=== PATIENT | female | born 1950 | race American Indian/Alaskan Native ===

== ENCOUNTER 2017-08-31 13:06 | Inpatient (IN) | payer MEDICARE, OTHER ==
[~2017-08-31] VITALS: Ht 172.7 cm; Wt 128.0 kg
[~2017-08-31 13:06] MED LIST: AVAPRO300 MG PO; FOLIC ACID1 MG PO; IRON325 M1 PO; LEVOTHYROXINE125 MCG PO; METOPROLOL SUCC50 MG PO; PRILOSEC20 MG PO; VITAMIN C250 MG PO; VITAMIN D2000 UNI1 PO
[2017-08-31] MEDS ORDERED: OMEPRAZOLE20 MG PO (13:24)
[2017-08-31] MEDS ORDERED: VITAMIN B-12500 MC3 SL (13:25)
[2017-08-31] MEDS ORDERED: VITAMIN E100 UNIT PO (13:26)
--- NOTE | 2017-08-31 21:00 | NUR ---
PATIENT ARRIVED FROM ER WITH LAZARO COMMANDING OFFICER GARAGE FLOAT NURSE. PATIENT HAVING NO PAIN, BUT INTENDING TO SPEND THE NIGHT IN THE BEDSIDE RECLINER THE BED CAUSES HER BACK PAIN AND SHE NORMALLY SLEEPS IN A RECLINER AT HOME.
--- NOTE | 2017-08-31 21:35 | NUR ---
FRESH WATER GIVEN. PT IS IN HER CHAIR WHEN I LEFT.
--- NOTE | 2017-08-31 22:45 | NUR ---
PATIENT HAS BEEN ADMITTED. 1 UNIT PRBC'S STARTTED AT 2226 WITH STABLE VS AND REPEAT VITALS AT 15 MIN ALSO STABLE AT 2241. LUNGS ARE CLEAR NO REACTION NOTED TO TRANSFUSION THUS FAR. PATIENT REMAINS SITTING UP IN THE RECLINER AND HAS THE CALL LIGHT IN REACH.
--- NOTE | 2017-09-01 01:30 | NUR ---
PATIENT'S TRANSFUSION IS COMPLETE AND VS REMAIN STABLE. PATIENT WANTS TO CONTINUE BEING UP IN THE CHAIR. PATIENT VOIDING IN THE BATHROOM WITHOUT DIFFICULTY AND AMBULATED TO THE BATHROOM WITH 1PSBA TO HELP WITH IV PUMP, WHICH IS NOW DISCONTINUED. BACK PAIN 3/10 WHICH PATIENT SAYS IS NORMAL FOR HER AND NO PAIN MEDICATION IS WANTED AT THIS TIME.
--- NOTE | 2017-09-01 03:39 | NUR ---
PATIENT CONTINUES TO SLEEP IN THE RECLINER. RESPIRATIONS EVEN AND REGULAR AT 16BPM. CALL LIGHT IS IN REACH.
--- NOTE | 2017-09-01 06:07 | NUR ---
VITALS AND I&OS DONE AND CHARTED. CALL LIGHT WITHIN REACH. PT NEEDS NOTHING AT THIS TIME.
--- NOTE | 2017-09-01 06:15 | NUR ---
PATIENT CONTINUES TO BE UP IN THE CHAIR. SHE IS CURRENTLY AWAKE AND HAVING NO PAIN. PATIENT HAD 3 UNITS OF PACKED RBC'S LAST NIGHT AND THERE HAS ALICIA NO SIGN OF ANY TRANSFUSION REACTION. IS HERE AND INFORMED US PATIENT COULD CONTINUE ON CLEAR LIQUIDS UNTIL ARRIVES TO DECIDE THE TREATMENT FOR THE DAY. PATIENT'S VITALS HAVE BEEN STABLE. LUNGS HAVE BEEN CLEAR. BOWEL TONES HAVE BEEN ACTIVE. PATIENT VOIDING SUFFICIENT AMOUNTS OF URINE IN THE RESTROOM AND HAD ONE SMALL DARK STOOL PER PATIENT THAT WAS FLUSHED. PATIENT'S CALL LIGHT IS IN REACH AND HER WATER GLASS FULL.
--- NOTE | 2017-09-01 07:15 | NUR ---
REPORT RC'D FROM MS ACCESS DATABASE DEVELOPER NURSE. PT SITTING IN CHAIR AND PARTICIPATING IN BEDSIDE REPORT. PT VERBALIZED WANTING TO DC HOME FOR BOWEL PREP IF SURGERY IS NOT PERFORMED TODAY. ADVISED PT PROVIDER WOULD BE IN TO ASSESS PT AND UPDATE PLAN OF CARE. DENIES ANY OTHER NEEDS AT THIS TIME.
--- NOTE | 2017-09-01 07:33 | NUR ---
PATIENT SITTING UP IN BEDSIDE RECLINER, CALL LIGHT IN REACH. PATIENT STATES SHE HAS ALREADY BEEN UP TO WASH HANDS AND FACE AND DO AM CARE. CALL LIGHT IN REACH. NO OTHER NEEDS AT THIS TIME.
--- NOTE | 2017-09-01 09:20 | NUR ---
PT SITTING IN CHAIR COMFORTABLY AT THIS TIME. PT A&O X3 AND RESPONDING APPROPRIATELY. RESPIRATION EVEN AND UNLABORED, LUNGS SOUNDS CLEAR THROUGHOUT ALL KUO. MILD ABD DISTENSION NOTED. DENIES PAIN, NAUSEA, OR ACUTE CHANGES. LAST BM THIS MORNING, PT STATES COLOR IMPROVED FROM TARRY TO DEEP GREEN IN COLOR. PT AMBULATING INDEPENDENTLY IN ROOM, FALL PREVENTION AND SAFETY DISCUSSED. PT REFUSED BISACODYL STATING SHE WOULD PREFER BOWEL PREP AT HOME, STOOL IS ALREADY SOFT, PT HAS HAD MULTIPLE BMS, AND STATES SHE WOULD LIKE TO AVOID EXCESSIVE BM AT THIS TIME, EDUCATION PROVIDED, REFUSAL NOTED. DENIES OTHER NEEDS AT THIS TIME. CALL LIGHT WITHIN REACH.
[2017-09-01] MEDS ORDERED: TOPROL XL100 MG PO (09:34)
--- NOTE | 2017-09-01 09:37 | NUR ---
PATIENT SITTING UP IN BEDSIDE RECLINER, RECYCLING TECHNICIAN IN ROOM. CALL LIGHT IN REACH. NO OTHER NEEDS AT THIS TIME.
--- NOTE | 2017-09-01 09:38 | NUR ---
MED REC COMPLETE
--- NOTE | 2017-09-01 10:00 | NUR ---
SPOKE WITH PATIENT IN ROOM. SHE WAS UP IN CHAIR. PATIENT AAOX3. PATIENT LIVES ALONE BUT HAS DAUGHTER CLOSE BY TO HELP. PATIENT IS RETIRED BUT STILL DRIVES. SHE IS ACTIVELY SEEING HER PCP, LAST SEEN YESTERDAY. WE DISCUSSED THAT HER PCP OFFICE HAS [facility] RN'S AVAILABLE TO COME INTO HER HOME FOR EDUCATION OR MEDICAL HELP. SHE STATES SHE DID NOT KNOW THIS AND WILL CONSIDER ASKING ABOUT THIS PROGRAM. SHE STATES SHE HAS NO ISSUES AMBULATING BUT DOES HAVE A CANE AT HOME TO USE IF NEEDED. NO KNOWN BARRIERS TO DISCHARGE HOME AT THIS TIME AND THIS IS THE PATIENTS PREFERENCE.
--- NOTE | 2017-09-01 10:10 | NUR ---
PT RESTING IN CHAIR AND READING. NO ACUTE DISTRESS NOTED. NO ACUTE CHANGES. DENIES ANY OTHER NEEDS AT THIS TIME. CALL LIGHT WITHIN REACH.
--- NOTE | 2017-09-01 12:00 | NUR ---
PT RESTING ON COUCH WITH EYES CLOSED. RESPIRATIONS EVEN AND UNLABORED. NO ACUTE DISTRESS NOTED.
--- NOTE | 2017-09-01 12:19 | NUR ---
PT SITTING IN CHAIR, ALERT AND ORIENTED. PT ANSWERS QUESTIONS-SHORT AND TO THE POINT. EXTENDED A BLESSING, AND WILL BE AVAILABLE NEEDED
--- NOTE | 2017-09-01 13:40 | NUR ---
PT SLEEPING ON COUCH. PT AWOKEN FOR MIRALAX BOWEL PREP. EDUCATED ON MIRALAX AND WHAT TO EXPECT. PT VERBALIZED UNDERSTANDING. PT VOIDING QS, HAT EMPTIED. PT DENIES OTHER NEEDS AT THIS TIME.
--- NOTE | 2017-09-01 14:05 | NUR ---
PATIENT SITTING UP IN BEDSIDE RECLINER, CALL LIGHT IN REACH. NO OTHER NEEDS AT THIS TIME.
--- NOTE | 2017-09-01 15:33 | NUR ---
PATIENT RESTING IN BEDSIDE RECLINER. CALL LIGHT IN REACH. NO OTHER NEEDS AT THIS TIME.
--- NOTE | 2017-09-01 16:00 | NUR ---
PT RESTING IN CHAIR IN RESTROOM READING BOOK. NO ACUTE CHANGES. BOWEL PREP COMPLETED. BARRIER WIPES PROVIDED AND EDUCATION ON MONITOR FOR SKIN BREAKDOWN PROVIDED, PT VERBALIZED UNDERSTANDING. PT NEXT TO CALL LIGHT IN RESTROOM. PT DECLINES LEAVING RESTROOM AT THIS TIME.
--- NOTE | 2017-09-01 18:23 | NUR ---
PT HAS REMAINED ON CLEAR LIQUID DIET THROUGHOUT THE DAY, NPO AFTER MIDNIGHT. PT TO HAVE UPPER AND LOWER ENDOSCOPY TOMORROW AM. BOWEL PREP COMPLETED, PT TOLERATED WELL, BARRIER WIPES PROVIDED FOR COMFORT. LUNGS CLEAR THROUGHOUT ALL KUO. DENIES PAIN, N/V/D. MILD ABD DISTENTION, ACTIVE BOWEL TONES, DENIES TENDERNESS. SALINE LOCKED. PT INDEPENDENT IN ROOM AND CALLING APPROPRIATELY. PT REPORTS DIFFICULTY SLEEPING AND MUST SLEEP IN CHAIR.
--- NOTE | 2017-09-01 18:27 | NUR ---
PATIENT RESTING IN BEDSIDE RECLINER, CALL LIGHT IN REACH. ORAL CARE PERFORMED. NO OTHER NEEDS AT THIS TIME.
--- NOTE | 2017-09-01 21:07 | NUR ---
pt up in chair, no c/o apin or n/v. tolerating fluids w/o problems, on clears, bowel prep effective. fluids and call light within hands reach
--- NOTE | 2017-09-01 22:00 | NUR ---
PATIENT ASSESSMENT DONE. BOWEL TONES ACTIVE AND LUNGS CLEAR. IV FLUSHES WELL. PATIENT HAVING NO PAIN. WAS ABLE TO FIND PATIENT A BETTERR RECLINEER TO SLEEP IN AND SHE SEEMS MUCH MORE COMFORTABLE. PATIENT ON CLEAR LIQUIDS AND HAS NO NEEDS AT THIS TIME. CALL LIGHT IS IN REACH.
--- NOTE | 2017-09-02 | NUR ---
PATIENT NOW NPO UNTIL AFTER HER PROCEDURE IN THE MORNING. PATIENT HAS BEEN SLEEPING IN THE RECLINER AND IS MUCH MORE COMFORTABLE IN THE NEW CHAIR. WATER GLASSES EMPTIED AND DISCUSSED NPO STATUS WITH PATIENT AND SHE VERBALIZED UNDERSTANDING. PATIENT HAVING NO PAIN AND HAS NO NEEDS AT THIS TIME. PATIENT'S CALL LIGHT IS IN REACH.
--- NOTE | 2017-09-02 02:00 | NUR ---
PATIENT RESTING IN HER RECLINER, EYES CLOSED, RESPIRATIONS EVEN AND REGULAR, AND CALL LIGHT IS IN REACH.
--- NOTE | 2017-09-02 04:00 | NUR ---
PATIENT HAS BEEN RESTING IN THE RECLINER ALL NIGHT SO FAR. LUNGS CLEAR BOWEL TONES ACTIVE. PATIENT IS INDEPENDENT INTO THE BATHROOM. PATIENT STILL NOT HAVING ANY PAIN. CALL LIGHT IS IN REACH.
--- NOTE | 2017-09-02 06:20 | NUR ---
PATIENT IS GOING TO GET UP AND TAKE A SHOWER. PATIENT IS READY TO GO FOR HER EGD AND COLONOSCOPY. PATIENT REMAINS PAIN FREE AND INDEPENDENT. PATIENT HAD 3 UNMEASURED VOIDS AND 1 UNSEEN BM DURING THE SHIFT. CALL LIGHT IN REACH.
--- NOTE | 2017-09-02 06:50 | NUR ---
pt up to shower on her requests. no c/o abd pain, no n/v. Continues NPO
--- NOTE | 2017-09-02 07:15 | NUR ---
REPORT RC'D FROM DRYWALL STRIPPER HELPER NURSE. NO ACUTE CHANGES THORUGHOUT NIGHT. PT NPO AT MIDNIGHT. PT RESTING IN CHAIR. NO ACUTE DISTRESS NOTED.
--- NOTE | 2017-09-02 08:28 | CONS ---
[facility] [address], [place] [address] Signed DATE OF CONSULTATION: 09/01/2017 CHIEF COMPLAINT: Anemia. HISTORY OF PRESENT ILLNESS: Melia is a 67-year-old female with one month of fatigue and dark stool. She claims dyspnea on exertion for only 12 steps. She is known to have a history of iron deficiency anemia, as well as low vitamin B12 levels. In addition, she is obese. When she went to her clinic they asked her to go to the emergency room apparently, for a blood transfusion. On exam by the ER nurse, she was said to be guaiac positive. Consequently, the Medical Service was asked to admit her. I have been asked to see her for upper and lower endoscopy. In reviewing her record, she has been through this twice before back in 2011, and 2016 with both upper and lower endoscopies, and everything has been fine except for a large hiatal hernia. In the meantime, she has been here in the hospital on her liquid diet and her laxatives today. I have been continuous improvement coach operating all day, and I have just made my way down to see her this evening. She seems to be doing quite well and told me that the stool is now clear. PAST MEDICAL HISTORY: Large hiatal hernia, Helicobacter pylori, hypertension, hypothyroidism, vitamin B12 deficiency, iron deficiency anemia, and obesity. PAST SURGICAL HISTORY: EGD and colonoscopy in 2011, and 2016, TAHBSO and AMP repair. SOCIAL HISTORY: She does not smoke, but she has an occasional drink. Chula Narayan is her primary care provider with the [place] clinic. Dr. Jacky Hickman is her hosiery repairer and she is retired from retail. FAMILY HISTORY: There is alcoholism and diabetes in the family. REVIEW OF SYSTEMS: She had 10 systems reviewed. No new findings. ALLERGIES: None. MEDICATIONS: 1. Levothyroxine. 2. Avapro. Electronically Signed By: AMY CABRERA MD 09/02/17 0828 PATIENT NAME: MELIA MACHADO CONSULTATION DATE OF : 46 REPORT #: [id number] PHYSICIAN: AMY CABRERA MD PCP: CHULA NARAYAN REPORT IS CONFIDENTIAL AND NOT TO BE RELEASED WITHOUT AUTHORIZATION [facility] [address] [place] [id number] Signed 3. Vitamin D. 4. Prilosec. 5. Vitamin B12. 6. Vitamin E. Apparently, metoprolol was discontinued. PHYSICAL EXAMINATION: VITAL SIGNS: Her blood pressure is 152/84, heart rate 73, respiratory rate 14, temperature is 97.3. She is 100% on room air. She is 5 feet 8 inches tall at 127 kg. GENERAL: On exam Melia was sitting in her chair at the bedside. She is not ill or toxic. She does not look particularly pale, although she did receive 1 unit of packed red blood cells. LUNGS: Clear to auscultation bilaterally. HEART: Regular rate and rhythm. ABDOMEN: Obese, but soft and nontender. RECTAL: Exam was not repeated. LABORATORY DATA: Hemoglobin 9, it was 7.4 and she received 1 unit packed red blood cells, mean cell volume 75, neutrophils 65. BUN 14, creatinine 0.7. Liver function tests negative. INR 0.9, PTT 27, albumin 3.7. RADIOGRAPHIC STUDIES: CT scan abdomen and pelvis is ordered and she has a large hiatal hernia and gallstones. ASSESSMENT AND PLAN: Melia is a 67-year-old female, who appears to have ongoing chronic iron deficiency anemia. She has been through a bowel prep today. We will plan on doing the upper and lower endoscopy tomorrow morning. I have reviewed that with her in detail. Of course, she has been through it twice already, and so she is very familiar with that. She has expressed understanding, and would like to proceed. Amy Cabrera MD ALB/MODL /[id number] cc: Amy Cabrera MD Electronically Signed By: AMY CABRERA MD 09/02/17 0828 PATIENT NAME: MELIA MACHADO CONSULTATION DATE OF : 46 REPORT #: [id number] PHYSICIAN: AMY CABRERA MD PCP: CHULA NARAYAN REPORT IS CONFIDENTIAL AND NOT TO BE RELEASED WITHOUT AUTHORIZATION [facility] [address] [facility] [place], [place] [address] Signed EFRA Bonilla Copies: AMY CABRERA MD, KRISTIN H PA ~ Electronically Signed By: AMY CABRERA MD 09/02/17 0828 PATIENT NAME: MELIA MACHADO CONSULTATION DATE OF : 46 REPORT #: [id number] PHYSICIAN: AMY CABRERA MD PCP: CHULA NARAYAN REPORT IS CONFIDENTIAL AND NOT TO BE RELEASED WITHOUT AUTHORIZATION
--- NOTE | 2017-09-02 08:45 | NUR ---
PT RESTING COMFORTABLY IN CHAIR. PT REPORTS SLEEPING WELL THORUGHOUT THE NIGHT. REPORTS SMALL LIQUID BM X2. URINE OUTPUT QS. INDEPENDENT IN ROOM. RESPIRATIONS EVEN AND UNLABORED, LUNG SOUNDS CLEAR THROUGHOUT, ON ROOM AIR. NO EDEMA NOTE. CMS INTACT. SALINE LOCKED. PREOP PAPERWORK COMPLETED. DENIES PAIN OR NAUSEA. DENIES OTHER NEEDS AT THIS TIME. CALL LIGHT WITHIN REACH.
--- NOTE | 2017-09-02 09:20 | NUR ---
PT IS SITTING UP IN CHAIR WITH CALL LIGHT IN REACH. PT DID NOT NEED ANYTHING AT THE MOMENT
--- NOTE | 2017-09-02 10:31 | NUR ---
PT OFF FLOOR AT THIS TIME AND DOWN TO OR WITH DAY SURGERY NURSE.
--- NOTE | 2017-09-02 11:05 | NUR ---
09/02/17 1105 Britt Gonzalez 1055 PT ARRIVED TO PACU DROWSY, ON 4L VIA NC. RESP EVEN AND UNLABORED. PT DENIES PAIN AND NAUSEA. PT REORINETED TO PACU.
--- NOTE | 2017-09-02 11:30 | NUR ---
PT ARRIVED VIA STRETCHER FROM DAY SURGERY. PT A&O AND RESPONDING APPROPRIATELY. RESPIRATIONS EVEN AND UNLABORED, OXYGEN SATURATION 98% ON ROOM AIR. PT ABLE TO TRANSFER INDEPENDTLY FROM STRETCHER TO CHAIR, GAIT STEADY, DENIES LIGHTHEADEDNESS. PT TO ADVANCE DIET TOLERATED. DUE TO VOID.
[2017-09-02] MEDS ORDERED: OMEPRAZOLE20 MG PO (11:42)
[2017-09-02] MEDS ORDERED: FERROUS SULFAT325 MG PO (11:43)
--- NOTE | 2017-09-02 12:00 | NUR ---
PT ABLE TO VOID 50CC YELLOW URINE, ENCOURAGED TO VOID NEEDED. PT ABLE TO DRINK WATER AND EAT APPLESAUCE, TOLERATED WELL, DENIES NAUSEA. PT TO ADVANCE DIET TOELRATED.CALL LIGHT WITHIN REACH.
--- NOTE | 2017-09-03 08:26 | OR ---
[facility] [address], [place] [address] Signed DATE OF OPERATION: 09/02/2017 SURGEON: Amy Cabrera MD UPPER AND LOWER ENDOSCOPY REPORT PREOPERATIVE DIAGNOSIS: Recurrent anemia. POSTOPERATIVE DIAGNOSES: 1. Mild linear gastritis associated with large hiatal hernia. 2. Hiatal hernia (40-33 cm). 3. [id number] pandiverticulosis. 4. Moderate internal and external hemorrhoids. PROCEDURES: 1. EGD with CLOtest and biopsies of the antrum. 2. Colonoscopy without biopsy. ESTIMATED BLOOD LOSS: None. INDICATIONS: Yohannes is a 67-year-old female, who had been to her primary care provider. I think mainly because she was dizzy. They found out she was anemic on her blood draw. She had been using Pepto-Bismol and it made her stool dark as well. She was complaining of dyspnea on exertion at 12 steps. She has had anemia in the past and has been through upper and lower endoscopy twice previously because of anemia while in the hospital. Her primary care provider asked to go straight to the emergency room and she was anemic with a hemoglobin of 7.4 and a mean cell volume below 75. BUN was fine at 14, creatinine was good at 0.7. Liver function tests were fine. Albumin was good at 3.7. INR good at 0.9 and PTT was good at 27. There was some concern about guaiac-positive stool on exam by the ER nurse. Consequently, she received a CT scan of the abdomen and pelvis and it showed her large hiatal hernia and some gallstones, but no other major issues. The hospitalist service was asked to admit her with respect to the above. In the meantime, she received 3 units of packed red blood cells and otherwise doing quite well. I was asked to see her as a general surgeon on-call to consider her third upper and lower endoscopy while here in the hospital. She went through a bowel prep yesterday and did quite well. I met with her this morning and we reviewed upper and lower endoscopy in detail. She understands there is risk including, but not limited to gas bloating, Electronically Signed By: AMY CABRERA MD 09/03/17 0826 PATIENT NAME: YOHANNES MACHADO OPERATIVE REPORT DATE OF : 46 REPORT #: [id number] PHYSICIAN: AMY CABRERA MD PCP: MICHAELA KENNEDY REPORT IS CONFIDENTIAL AND NOT TO BE RELEASED WITHOUT AUTHORIZATION [facility] [address], [place] [address] Signed crampy abdominal pain, bleeding, perforation, requiring surgery, and missed diagnosis. She also told me she was awake during her previous colonoscopies and it was a miserable experience. Consequently, we asked an anesthesia provider to come and help us with propofol infusion, but in addition, Yohannes is obese with a very large full neck and face and we needed some help with some airway management as well. Yohannes had expressed understanding and wished to proceed. DESCRIPTION OF PROCEDURE: Yohannes was taken into our endoscopy suite and placed in the supine semi-recumbent position. The posterior oropharynx was anesthetized with Hurricaine spray. A bite block was utilized for the case. She was given IV propofol per our nurse analyst sales. The adult gastroscope was introduced and advanced all the way out into the third portion of the duodenum under direct visualization of camera without difficulty. The duodenum and pyloric channel were unremarkable. The stomach showed very mild erythematous changes. We went and took a biopsy of the antrum for pathologic review as well as CLOtest. Upon retroflexion of the scope, I could see her large hiatal hernia. You could see two areas of superficial linear erosion where the hiatal hernia was traveling across the diaphragm. No active bleeding at this time. No obvious ulcerations. No obvious [place]-Francis tears. No gastric or esophageal varices. No gastric polyps. The scope was withdrawn up through the area of the GE junction. We measured out the hiatal hernia from 40 cm up to 33 cm. GE junction showed minimal disruption. There was no Díaz's mucosa, no distal esophagitis. The middle and upper esophagus were fine. After this, the gas was suctioned out and the gastroscope removed. Yohannes tolerated the procedure quite well. Yohannes was then rotated into the left lateral decubitus position. She was maintained on IV sedation with IV propofol. A digital rectal exam was performed and she does have moderate external hemorrhoids. The adult colonoscope was then introduced and advanced all around into the cecum under direct visualization of camera without difficulty. Her prep was good. The scope was then slowly withdrawn. She had [id number] pandiverticulosis. The rectum itself was unremarkable. Upon retroflexion of the scope, she does have moderate internal hemorrhoids. After this, the gas was suctioned out and the colonoscope removed. Yohannes tolerated her lower endoscopy quite well. RECOMMENDATIONS: I will see Yohannes back in my office in 7 to 14 days after discharge for followup. She has already seen a economic manager, Dr. Jacky Hickman in the past. She may be losing blood slowly associated with that hiatal hernia. She might consider having that repaired. Electronically Signed By: AMY CABRERA MD 09/03/17 0826 PATIENT NAME: YOHANNES MACHADO OPERATIVE REPORT DATE OF : 46 REPORT #: [id number] PHYSICIAN: AMY CABRERA MD PCP: MICHAELA KENNEDY REPORT IS CONFIDENTIAL AND NOT TO BE RELEASED WITHOUT AUTHORIZATION [address] [place], [place] [address] Signed MD FREDDIE Mckenzie/MODL /[id number] cc: MD Jacky Mckenzie, EFRA Case Copies: AMY CABRERA MD, JAMES MD BOURRET, KRISTIN H PA ~ Electronically Signed By: AMY CABRERA MD 09/03/17 0826 PATIENT NAME: YOHANNES MACHADO OPERATIVE REPORT DATE OF : 46 REPORT #: [id number] PHYSICIAN: AMY CABRERA MD PCP: MICHAELA KENNEDY REPORT IS CONFIDENTIAL AND NOT TO BE RELEASED WITHOUT AUTHORIZATION
== END 2017-09-02 14:10 | disposition home or self-care (01) | DRG 378 ==
LOC: ED 13:06 → MS 20:18
PROVIDERS: Colon & Rectal Surgery; ADMIT Internal Medicine
PROC: 0DD78ZX Extraction of Stomach, Pylorus, Via Natural or Artificial Opening Endoscopic, Diagnostic (ICD-10-PCS; principal; 2017-09-02 10:24)
PROC: 0DJD8ZZ Inspection of Lower Intestinal Tract, Via Natural or Artificial Opening Endoscopic (ICD-10-PCS; 2017-09-02 10:24)
DX: K29.71 Gastritis, unspecified, with bleeding (principal); Z68.41 Body mass index [BMI] 40.0-44.9, adult; D50.0 Iron deficiency anemia secondary to blood loss (chronic); K44.9 Diaphragmatic hernia without obstruction or gangrene; D51.9 Vitamin B12 deficiency anemia, unspecified; I10 Essential (primary) hypertension; E03.9 Hypothyroidism, unspecified; E66.9 Obesity, unspecified; K57.30 Diverticulosis of large intestine without perforation or abscess without bleeding; K64.8 Other hemorrhoids; K64.4 Residual hemorrhoidal skin tags; Z79.899 Other long term (current) drug therapy
CPT/HCPCS: 36415; 36430; 74177; 80048; 80053; 85025; 85610; 85730; 86677; 86850; 86900; 86901; 86920; 96374; 99285; J2250; J2704; J3010; Q9967

== ENCOUNTER 2018-02-18 17:12 | Emergency (ER) | payer MEDICARE, OTHER ==
[~2018-02-18] VITALS: Ht 172.7 cm; Wt 113.4 kg
[~2018-02-18 17:12] MED LIST changes: +FERROUS SULFAT325 MG PO; +OMEPRAZOLE20 MG PO; +TOPROL XL100 MG PO; +VITAMIN B-12500 MC3 SL; +VITAMIN E100 UNIT PO
[2018-02-18] MEDS ORDERED: POTASSIUM CHLO20 ME1 PO (21:56)
[2018-02-18] MEDS ORDERED: KEFLEX500 MG PO (21:56)
== END 2018-02-18 22:33 | disposition home or self-care (01) ==
LOC: ED 17:12
PROC: 0T9B70Z Drainage of Bladder with Drainage Device, Via Natural or Artificial Opening (ICD-10-PCS; principal; 2018-02-18)
DX: G89.18 Other acute postprocedural pain (principal); R10.13 Epigastric pain; E87.6 Hypokalemia; N39.0 Urinary tract infection, site not specified; I10 Essential (primary) hypertension; Z87.891 Personal history of nicotine dependence; Z98.890 Other specified postprocedural states; Z79.899 Other long term (current) drug therapy
CPT/HCPCS: 51701; 74177; 80053; 81001; 83690; 85025; 96361; 96374; 96375; 99284-25; J1170; J2405; J7030; J7040; Q9967

== ENCOUNTER 2020-11-03 17:15 | Observation (INO) | payer MEDICARE, OTHER ==
[~2020-11-03] VITALS: Ht 172.7 cm; Wt 130.6 kg
[~2020-11-03 17:15] MED LIST changes: +KEFLEX500 MG PO; +POTASSIUM CHLO20 ME1 PO
--- NOTE | 2020-11-04 07:21 | CONS ---
[facility] [address], [place] [address] Signed DATE OF CONSULTATION: 11/04/2020 CHIEF COMPLAINT: Right lower quadrant abdominal pain. HISTORY OF PRESENT ILLNESS: Melia is a 70-year-old obese female, who has 1-day history of right lower quadrant abdominal pain. This started in the morning. She came to the emergency room late in the day. In the emergency room, she was tender in the right lower quadrant. She seems to be a little tachycardic, but she has not taken her metoprolol. Her temperature was about 99 or little higher. She had a white count slightly borderline at 10.5. The other tests were unremarkable including her COVID test. She underwent a chest x-ray which was unremarkable. The CT scan of the abdomen and pelvis showed the 9 mm mildly dilated appendix with some periappendiceal inflammation and possibly a small appendicolith at the base of the appendix. Consequently, I was asked to admit her as a general surgeon on-call. She has declined Tylenol, ibuprofen and pain medication up to this point. She did receive some Rocephin and Flagyl last night. She has done well overnight. PAST MEDICAL HISTORY: Chronic diarrhea, hypertension, history of anemia, hypothyroidism, and osteoarthritis of her knees with the right worse than the left. PAST SURGICAL HISTORY: Includes a vaginal partial hysterectomy with bladder sling and repair as well as laparoscopic Sveta fundoplication with Dr. Katelin Armando. SOCIAL HISTORY: She smoked on and off when she was young, but by her 38 she quit. She does not drink. She does not use marijuana products. She is now , but has four children, Jazmin Pugh is her daughter at [phone]. Melia is retired, but still drives and uses a cane to help ambulate. She attends the [facility] with Dr. Kin Echevarria. FAMILY HISTORY: She has half siblings who have diabetes. Her mom had some type of heart problem. REVIEW OF SYSTEMS: She had 10 systems reviewed and we included pertinent positives in the above. She said there is no metal in her body. ALLERGIES: None. Electronically Signed By: AMY CABRERA MD 11/04/20 0721 PATIENT NAME: MELIA MACHADO CONSULTATION DATE OF : 46 REPORT #: [id number] PHYSICIAN: AMY CABRERA MD PCP: [facility] REPORT IS CONFIDENTIAL AND NOT TO BE RELEASED WITHOUT AUTHORIZATION [facility] [address], [place] [address] Signed MEDICATIONS: Levothyroxine 125 mcg p.o. daily, irbesartan 300 mg p.o. daily, vitamin D, vitamin B12, and metoprolol-XL 100 mg p.o. daily. PHYSICAL EXAMINATION: VITAL SIGNS: Her blood pressure is 142/59, heart rate 116, respiratory rate 20, her temperature is 100.8. She is 92-98% on room air. She is 5 feet 8 inches at 130 kg. GENERAL: Melia is a 70-year-old female lying supine in her hospital bed. She does not appear systemically ill or toxic. She is generally cooperative and fairly good historian. LUNGS: Generally clear to auscultation bilaterally. HEART: Little tachycardic, but no murmur. ABDOMEN: Obese, but soft. She is tender in the right lower quadrant. LABORATORY DATA: White blood count is 10.5, hemoglobin 13, neutrophils 78. BUN 17, creatinine 0.73. COVID is negative. Urinalysis negative. Liver function tests are negative. Albumin is 3.6. Lipase is negative. EKG showed normal sinus rhythm. RADIOGRAPHIC STUDIES: A chest x-ray was unremarkable. The CT scan of the abdomen and pelvis shows the 9 mm mildly dilated appendix with periappendiceal inflammation and possibly a small appendicolith at the base of the appendix. ASSESSMENT AND PLAN: Melia is a 70-year-old obese female, who appears to have classic appendicitis. She has been admitted, started on IV fluids and antibiotics. She has declined pain medication up to this point. I brought up a brochure with me on the appendix. We discussed the location and function of the appendix. We have discussed laparoscopic versus open appendectomy. We have discussed the expected intraop and postop course. There is risk to surgery including, but not limited to bleeding, infection, scarring, change in contour of the skin, damage to bowel, appendiceal stump leak, postoperative intraabdominal abscess, incisional hernias and other unforeseen comorbidities. In the meantime, we are going to resume her metoprolol IV and I have encouraged her to try at least some Tylenol or ibuprofen if not some Dilaudid to help with her pain control. We are going to work her in our schedule today as well. She has expressed understanding and would like to proceed as above. Amy Cabrera MD Electronically Signed By: AMY CABRERA MD 11/04/20 0721 PATIENT NAME: MELIA MACHADO CONSULTATION DATE OF : 46 REPORT #: [id number] PHYSICIAN: AMY CABRERA MD PCP: [facility] REPORT IS CONFIDENTIAL AND NOT TO BE RELEASED WITHOUT AUTHORIZATION [address] [place]ik [place] [address] Signed ALB/MODL /[id number] cc: MD Katelin Sosa MD Andrew L Bower, MD Copies: KIN ECHEVARRIA MD, CHRISTY MD BOWER, ANDREW L MD ~ Electronically Signed By: AMY CABRERA MD 11/04/20 0721 PATIENT NAME: MELIA MACHADO CONSULTATION DATE OF : 46 REPORT #: [id number] PHYSICIAN: AMY CABRERA MD PCP: [facility] REPORT IS CONFIDENTIAL AND NOT TO BE RELEASED WITHOUT AUTHORIZATION
--- NOTE | 2020-11-04 13:14 | OR ---
[facility] [address], [place] [address] Signed DATE OF OPERATION: 11/04/2020 SURGEON: mAy Cabrera MD PREOPERATIVE DIAGNOSIS: Acute appendicitis. POSTOPERATIVE DIAGNOSIS: Acute necrotic appendicitis. PROCEDURE: Laparoscopic appendectomy. ESTIMATED BLOOD LOSS: None. FINDINGS: The base of the appendix was necrotic. INDICATIONS: Melia is a 70-year-old obese female, who presented with 1-day history of right lower quadrant abdominal pain. She came to the emergency room the evening. She was tender in the right lower quadrant with a slightly elevated white blood cell count. A chest x-ray was unremarkable. The CT scan showed a mildly dilated appendix at 9 mm. There was periappendiceal inflammation. Question whether or not there was an appendicolith at the base of the appendix. 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 She received Rocephin and Flagyl and IV fluids. She declined pain medications. This morning, I met with Melia in the hospital room. I gave her a brochure on the appendix. We discussed the location and function of the appendix. We discussed laparoscopic versus open appendectomy. She understands expected intraop and postop course. There is risk of surgery including, but not limited to bleeding, infection, scarring, change in contour of the skin, damage to bowel, appendiceal stump leak, postoperative intraabdominal abscess, incisional hernias and other unforeseen comorbidities. She had expressed understanding and wished to proceed. PROCEDURE NOTE: Melia was taken into the operating room and placed in the supine position under general endotracheal tube anesthesia. She already had subcutaneous Lovenox along with SCDs in place. A Jerry catheter was inserted with return of clear yellow urine without difficulty. She was then prepped and draped in the usual sterile fashion. All trocars Electronically Signed By: AMY CABRERA MD 11/04/20 1314 PATIENT NAME: MELIA MACHADO OPERATIVE REPORT DATE OF : 46 REPORT #: [id number] PHYSICIAN: AMY CABRERA MD PCP: [facility] REPORT IS CONFIDENTIAL AND NOT TO BE RELEASED WITHOUT AUTHORIZATION [facility] [address], [place] [address] Signed were placed in usual positions under direct visualization of camera without difficulty. We took pictures throughout for photodocumentation. It took just a minute to bluntly dissect the omentum away from the appendix in the base of the cecum. The base of the cecum was a bit inflamed. The proximal 1/4th of the appendix was a bit necrotic. We cleared off the base of the appendix with help of cautery. We used our GI load on linear stapler and we placed that as high up onto the cecum as we could to divide it from the appendix. Those oh seemed to be quite secure. There was good hemostasis. We then used a vascular load to come across the mesoappendix with excellent hemostasis as well. The appendix was then placed into an EndoCatch bag and taken out through the right subcostal trocar site. We used our laparoscopic suturing device to pass 0-Vicryl suture on either side of the fascia right subcostal trocar site. This was tied down to close the fascia primarily. After this, all the gas was allowed to escape and all the remaining trocars removed along with the appendix. The appendix was passed off the field to our circulating nurse. After this, the supraumbilical trocar site was closed with interrupted [id number]-sd-sbjxy and simple 0-Vicryl sutures. Local anesthetic was injected into all trocar sites. The skin and dermis of each trocar site were closed with interrupted 3-0 subcuticular Monocryl sutures. Dry gauze and tape were applied to all incisions. The Jerry catheter was then removed without difficulty. Melia was awakened from her anesthesia, extubated in the OR, and taken to the recovery room in stable condition. Amy Cabrera MD ALB/MODL /[id number] cc: MD Katelin Mckenzie MD James Winde, MD Copies: AMY CABRERA MD, CHRISTY MD Electronically Signed By: AMY CABRERA MD 11/04/20 1314 PATIENT NAME: MELIA MACHADO OPERATIVE REPORT DATE OF : 46 REPORT #: [id number] PHYSICIAN: AMY CABRERA MD PCP: [facility] REPORT IS CONFIDENTIAL AND NOT TO BE RELEASED WITHOUT AUTHORIZATION [address] [address] Signed KIN STARR MD ~ Electronically Signed By: AMY CABRERA MD 11/04/20 1314 PATIENT NAME: MELIA MACHADO DAVON OPERATIVE REPORT DATE OF : 46 REPORT #: [id number] PHYSICIAN: AMY CABRERA MD PCP: [facility] REPORT IS CONFIDENTIAL AND NOT TO BE RELEASED WITHOUT AUTHORIZATION
--- NOTE | 2020-11-05 07:39 | DS ---
[facility] [address], [place] [address] Signed ADMISSION DATE: 11/04/2020 DISCHARGE DATE: 11/05/2020 FINAL DIAGNOSIS: Acute necrotic appendicitis. PROCEDURE: Laparoscopic appendectomy. HISTORY OF PRESENT ILLNESS: Melia is a 70-year-old obese female, who had 1-day history of right lower quadrant abdominal pain. She came to the emergency room for evaluation. She had not taken her metoprolol and her heart rate was a little high. She was tender in the right lower quadrant. White count was borderline at 10.5. Chest x-ray was unremarkable. The CT scan showed a mildly dilated appendix at 9 mm. There was periappendiceal inflammation. Possibly an appendicolith at the base. I have been asked to admit her as a general surgeon on-call. HOSPITAL COURSE: Melia was admitted as above and started on her Rocephin and Flagyl along with IV fluids. She had declined pain medications. She is particularly adverse to narcotics. I had met with her in the morning and we went through surgery later that morning for her uncomplicated laparoscopic appendectomy. The proximal 1/4th of the appendix was necrotic. We felt like the staple line was secured on the base of the cecum. I did review this with Melia several times to make her aware of our concern. She understands there is less than 1% chance that would leak through the staple line. She did well both intraop and postop. She has tolerated a full liquid diet. She has not passed any gas or bowel movement. However, she feels quite comfortable and is asking to go home. She has no nausea or vomiting. The abdomen is obese, but soft and nontender. Her localized peritonitis has resolved overnight. Her incisions are all clean, dry, and intact without any local signs or symptoms of infection. DISCHARGE PLANS AND MEDICATIONS: Melia will be discharged to home with a prescription for hydrocodone 10/325 one tablet p.o. q.6 hours p.r.n. for severe postoperative pain. We will give her 30 tablets with no refills. She is welcome to fill that if needed. Otherwise, she can use Tylenol, ibuprofen, or Aleve for [id number] postoperative pain. She can purchase those [id number]-[id number]. She can resume all of her chronic medications. She can follow a regular diet. She can perform her activities of daily living including walking up and down stairs, showering and bathing as usual. She should not do any heavy pushing, pulling, or lifting over about 20 pounds. We will have her back in the office in about Electronically Signed By: AMY HARDY MD 11/05/20 0739 PATIENT NAME: MELIA MACHADO DISCHARGE SUMMARY DATE OF : 46 REPORT #: [id number] PHYSICIAN: AMY HARDY MD PCP: [facility] REPORT IS CONFIDENTIAL AND NOT TO BE RELEASED WITHOUT AUTHORIZATION [address] [address] Signed 7 to 10 days for followup. She has expressed understanding and agrees with the above plan. Amy Hardy MD ALB/MODL /[id number] cc: MD Jacky Mckenzie MD Copies: AMY HARDY MD, JAMES MD ~ Electronically Signed By: AMY HARDY MD 11/05/20 0739 PATIENT NAME: MELIA MACHADO DISCHARGE SUMMARY DATE OF : 46 REPORT #: [id number] PHYSICIAN: AMY HARDY MD PCP: [facility] REPORT IS CONFIDENTIAL AND NOT TO BE RELEASED WITHOUT AUTHORIZATION
[2020-11-05] MEDS ORDERED: METOPROLOL SUCC50 MG PO (07:45)
[2020-11-05] MEDS ORDERED: HYDROCODON-ACE1 EAC8 PO (08:03)
--- NOTE | 2020-11-05 15:49 | EKG ---
[facility] [address] [facility] [place], [place] [address] Signed Normal sinus rhythm Normal ECG No previous ECGs available Confirmed by ANNA MARIE DOSS MD ([id number]) on 11/05/2020 3:48:47 PM Electronically Signed By: ANNA MARIE DOSS MD 11/05/20 1549 PATIENT NAME: YOHANNES MACHADO Electrocardiogram DATE OF : 46 PHYSICIAN: ANNA MARIE DOSS MD REPORT #: [id number] REPORT IS CONFIDENTIAL AND NOT TO BE RELEASED WITHOUT AUTHORIZATION
--- NOTE | 2020-11-05 16:24 | PATH ---
[facility] [address] [facility] [place] [address] Signed SPECIMEN(S): A APPENDIX SPECIMEN SOURCE: A. APPENDIX CLINICAL HISTORY: Acute appendicitis. FINAL PATHOLOGIC DIAGNOSIS: Appendix, appendectomy: - Acute appendicitis. DDF:em:C2NR MICROSCOPIC EXAMINATION: Histologic sections of all submitted blocks are examined by light microscopy. These findings, together with the gross examination, support the pathologic diagnosis. GROSS DESCRIPTION: The specimen, labeled "BHARATI, A.," is received in formalin and consists of Specimen: Appendix with mesoappendix. Dimensions: 7.2 x 3.6 x 2.0 cm. Serosa: Schrader-brown, congested with adherent white-wells exudate. Disruption: Not grossly identified. Inking: Staple line is inked black. Mucosa: Valley-wells to hemorrhagic. Fecalith: Not grossly identified. Additional: None. Granulating Blender sections including cross section, the tip, bisected, and resection margin, shaved, are submitted in cassette (A1). AC (under the direct supervision of a pathologist) The Gross Description was prepared using a voice recognition system. The report was reviewed for accuracy; however, sound-alike word errors, addition and/or deletions may occur. If there is any question about this report, please contact Client Services. PERFORMING LABORATORY: The technical component was performed by [employer], [address] [place] [id number] (Management Services Technician: Marimar Granados MD; CLIA# [id number]). Professional interpretation was performed by [employer], [facility], [address] [place] [address], PATIENT NAME: YOHANNES MACHADO PATHOLOGY DATE OF : 46 REPORT #: [id number] PHYSICIAN: [facility] PCP: [facility] REPORT IS CONFIDENTIAL AND NOT TO BE RELEASED WITHOUT AUTHORIZATION [facility] [address] [facility] [place] [address] Signed BRANDON Barillas [id number] (CLIA#: [id number]) Diagnostician: Eugene Rodriguez DO Pathologist Electronically Signed 11/05/2020 Copies: ~ PATIENT NAME: YOHANNES MACHADO PATHOLOGY DATE OF : 46 REPORT #: [id number] PHYSICIAN: [facility] PCP: [facility] REPORT IS CONFIDENTIAL AND NOT TO BE RELEASED WITHOUT AUTHORIZATION
== END 2020-11-05 11:00 | disposition home or self-care (01) ==
LOC: ED 17:15 → MS 17:17
PROVIDERS: ADMIT Colon & Rectal Surgery; ATTEND Colon & Rectal Surgery
PROC: 0DTJ4ZZ Resection of Appendix, Percutaneous Endoscopic Approach (ICD-10-PCS; principal; 2020-11-04 09:00)
DX: K35.891 Other acute appendicitis without perforation, with gangrene (principal); I10 Essential (primary) hypertension; E03.9 Hypothyroidism, unspecified; E66.9 Obesity, unspecified; K21.9 Gastro-esophageal reflux disease without esophagitis; M17.0 Bilateral primary osteoarthritis of knee; Z87.891 Personal history of nicotine dependence; Z79.890 Hormone replacement therapy; Z79.899 Other long term (current) drug therapy; Z20.822 Contact with and (suspected) exposure to COVID-19; Z68.37 Body mass index [BMI] 37.0-37.9, adult
CPT/HCPCS: 00840; 71045; 74177; 80048; 80053; 81001; 83690; 83735; 84100; 84484; 85025; 93005; 93010; 96365; 96372; 96375; 96376; 99285-25; C9113; C9803; G0378; J0330; J0696; J1100; J1170; J1650; J1885; J2250; J2405; J2704; J2765; J3010; J7121; Q9967; U0003

== ENCOUNTER 2021-08-14 08:18 | Emergency (ER) | payer MEDICARE, OTHER ==
[~2021-08-14] VITALS: Ht 172.7 cm; Wt 130.2 kg
[~2021-08-14 08:18] MED LIST changes: +HYDROCODON-ACE1 EAC8 PO
== END 2021-08-14 12:25 | disposition home or self-care (01) ==
LOC: ED 08:18
DX: N13.2 Hydronephrosis with renal and ureteral calculous obstruction (principal); I10 Essential (primary) hypertension; E03.9 Hypothyroidism, unspecified; Z87.891 Personal history of nicotine dependence
CPT/HCPCS: 36415; 74176; 80053; 81001; 83690; 85025; 96374; 96375; 99284-25; J1170; J1885; J2405; J7030